=== PATIENT | female | born 1935 | race Caucasian/White ===

== ENCOUNTER → 2016-11-23 | Outpatient (CLI) | payer MEDICARE, OTHER ==
--- NOTE | 2016-11-24 08:17 | US ---
EXAM DESCRIPTION: Soft Tissue,Head/Neck CLINICAL HISTORY: 81 years Female, LOCALIZED SWELLING, MASS AND LUMP, HEAD COMPARISON: None. FINDINGS: Real-time sonographic images of the area of palpable abnormality labeled right jaw area shows a well-circumscribed heterogeneous hypoechoic mass in the subcutaneous soft tissues measuring 1.3 x 1.2 x 0.9 cm. The mass does show some increased vascularity. No central echogenic hilum is seen to suggest typical lymph node. IMPRESSION: Solid soft tissue mass in the subcutaneous tissue of the right neck in the area of palpable abnormality is noted. This could represent pathologic lymph node or other soft tissue mass of the neck. Electronically signed by: Mac Zimmerman MD 11/24/2016 8:17 AM CDT
== END | disposition home or self-care (01) ==
LOC: US 11:26
PROVIDERS: ATTEND Surgery
DX: R22.0 Localized swelling, mass and lump, head (principal)

== ENCOUNTER 2016-12-15 05:38 | Day surgery (SDC) | payer MEDICARE, OTHER ==
[2016-12-15] MEDS ORDERED: SODIUM BICARBONATE VIAL 50 MEQ/50 ML VIAL ONE (09:50)
[2016-12-15] MEDS ORDERED: LIDOCAINE 1% 50 ML VIAL INJ ONE (09:50)
--- NOTE | 2016-12-15 13:47 | OP ---
DATE OF PROCEDURE: 12/15/16 PREOPERATIVE DIAGNOSIS: 1. Subcutaneous mass, right cheek. POSTOPERATIVE DIAGNOSIS: 1. Subcutaneous mass, right cheek. PROCEDURE: 1. Excision of subcutaneous mass, right cheek. SURGEON: Ashok Dozier MD. NETBACKUP ADMIN: None. ANESTHESIA: Local infiltration of 1% lidocaine with bicarb. INDICATION: The patient is a 81-year-old female who developed a mass in the right cheek. It was ultrasounded which revealed a subcutaneous mass consistent with a lymph node. Her mouth and scalp were both examined with no obvious lesions, so she was brought to the surgical librado today for excision biopsy after the risks, benefits and alternatives to the procedure were discussed and accepted. FINDINGS: The mass was smooth and round, consistent with a lymph node. It was sent for pathologic evaluation. PROCEDURE: After the patient was brought to the Surgical Suite and placed in supine position, her head was turned to the left and her right cheek was prepped and draped in the usual manner. Surgical time-out was taken. At this point, an oblique incision was fashioned over the mass, first with a marking pen and then with infiltration of anesthesia. The skin was incised with a knife and dissection was carried down through the skin into the subsequent tissue using electrocautery. The lesion was palpated and dissection was carried down to the mass using tedious blunt dissection and electrocautery and some sharp dissection. The mass was then identified, elevated, dissected free circumferentially with blunt dissection and sent for pathologic evaluation. The wound was irrigated with saline. A couple of areas of oozing were controlled with electrocautery. The wound was again irrigated with local anesthetic. Hemostasis seemed to be adequate. It was closed in layers with the subcutaneous tissue reapproximated with interrupted 4-0 Vicryl sutures and the skin edges approximated with 4-0 Vicryl subcuticular sutures, benzoin and Steri-Strips. Sterile pressure dressing was applied. The patient was taken back to the Ambulatory Unit with for an ice pack placement. Estimated blood loss was less than 25 mL. All sponge, needle and instrument counts were correct. #[id number] [facility]
[2016-12-15 13:48] VITALS: BP 164/84; TEMP 98.8; O2SAT 96
== END 2016-12-15 13:50 | disposition home or self-care (01) ==
LOC: AMB 05:38
PROVIDERS: ATTEND Surgery
DX: D23.39 Other benign neoplasm of skin of other parts of face (principal); K21.9 Gastro-esophageal reflux disease without esophagitis; I10 Essential (primary) hypertension; M81.0 Age-related osteoporosis without current pathological fracture; J45.909 Unspecified asthma, uncomplicated; E78.00 Pure hypercholesterolemia, unspecified; Z96.619 Presence of unspecified artificial shoulder joint; Z88.8 Allergy status to other drugs, medicaments and biological substances; Z79.899 Other long term (current) drug therapy